=== PATIENT | male | born 1965 | race African-American/Black ===

== ENCOUNTER 2020-10-10 21:09 | Emergency (ER) | payer OTHER ==
[~2020-10-10] VITALS: Ht 172.7 cm; Wt 87.0 kg
[2020-10-10 21:43] VITALS: BP 152/101
[2020-10-10 22:00] LABS: BASOPHIL # 0.1 10^3/uL (0.0-0.1); BASOPHIL % 1.7 % (0.0-0.2); EOSINOPHIL # 0.2 10^3/uL (0.0-0.2); EOSINOPHIL % 3.9 % (0.0-5.0); LYMPHOCYTES % 46.6 % (24.0-44.0); MEAN CORP HGB 31.1 pg (26-34); MONOCYTES # 0.5 10^3/uL (0.3-0.8); MONOCYTES % 11.8 % (5.0-12.0); NEUTROPHIL # 1.5 10^3/uL (1.8-7.7); NEUTROPHILS % 35.8 % (41.0-85.0); PLATELET COUNT 228 10^3/uL (150-400); RED CELL DISTRIBUTION WIDTH 12.7 % (11.5-14.5)
--- NOTE | 2020-10-10 22:18 | DIREP ---
PROCEDURE:CHEST 2 VIEWS COMPARISON:None. INDICATIONS:Pain FINDINGS: LUNGS/PLEURA:Possible developing infiltrate in the left lung base VASCULATURE:Normal. Unremarkable pulmonary vasculature. CARDIAC:Normal. No cardiac silhouette abnormality or cardiomegaly. MEDIASTINUM:Normal. No visible mass or adenopathy. BONES:Normal. No fracture or visible bony lesion. OTHER:Negative. CONCLUSION:Questionable developing infiltrate in the left lung base Dictated by: Lan Burt DO on 10/10/2020 at 10:16 PM
[2020-10-10 22:27] LABS: ALANINE AMINOTRANSFERASE(ML) 31 U/L (12-78); ALKALINE PHOSPHATASE 63 U/L (50-136); ASPARTATE AMINO TRANSFERASE 22 U/L (0-35); CALCIUM 8.8 mg/dL (8.4-10.5); CARBON DIOXIDE 23.7 mmol/L (20.0-32); GLUCOSE 104 mg/dL (70-110)
[2020-10-10 22:47] VITALS: BP 129/87
--- NOTE | 2020-10-10 22:57 | ER.PDOC ---
General Chief Complaint: Chest Pain-Cardiac Nature Stated Complaint: CHEST DISCOMFORT Time seen by MD: 22:54 Source: patient Exam Limitations: no limitations History of Present Illness Initial Comments Chest discomfort for 3 days. No shortness of breath. Severity/Quality: mild, burning Radiation: no radiation Activities at Onset: none Prior CP/Workup: No Prior Chest Pain Nitro Today/Relief: No Nitro Taken Today Aspirin Today: No Aspirin Today Associated Symptoms: denies symptoms Allergies: Coded Allergies: sulfamethoxazole (Verified Allergy, Intermediate, 10/10/20) trimethoprim (Verified Allergy, Intermediate, 10/10/20) Past Medical History Medical History: no pertinent history Surgical History: no surgical history Family History Significant Family History: no pertinent family hx Social History Smoking: non-smoker Alcohol Use: occassionally Drug Use: none Constitutional: no symptoms reported EENTM: no symptoms reported Respiratory: no symptoms reported Cardiovascular: see HPI Gastrointestinal: no symptoms reported All Other Systems: Reviewed and Negative Physical Exam General Appearance: No Apparent Distress, WD/WN Neck: Non-Tender, Full Range of Motion, Supple, Normal Inspection Respiratory: chest non-tender, lungs clear, normal breath sounds, no respiratory distress, no accessory muscle use Cardiovascular: Normal Peripheral Pulses, Regular Rate, Rhythm, No Edema, No Gallop, No JVD, No Murmur Gastrointestinal: Normal Bowel Sounds, No Organomegaly, No Pulsatile Mass, Non Tender, Soft Extremities: Normal Range of Motion, Non-Tender, Normal Inspection, No Pedal Edema, No Calf Tenderness, Normal Capillary Refill 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, No Motor/Sensory Deficits, Alert, Normal Mood/Affect, Oriented x 3 Skin: Normal Color, Warm/Dry Lymphatic: No Adenopathy Results/Orders Results/Orders Orders - DIANELYS GONZALES MD Cbc With Auto Diff (10/10/20 21:33) Comprehensive Metabolic Panel (10/10/20 21:33) Troponin I (10/10/20 21:33) Probnp B-Type Club Car Attendant (10/10/20 21:33) Ekg-Routine (10/10/20 21:33) Xr Chest 2v (10/10/20 21:51) Lipid Panel(Ml) (10/10/20 21:59) Vital Signs Date Time Temp Pulse Resp B/P (MAP) Pulse Ox O2 Delivery O2 Flow Rate FiO2 10/10/20 22:47 86 20 129/87 (101) 97 Room Air 10/10/20 21:43 98.2 82 20 10/10/20 21:43 98.2 82 20 152/101 (118) 82 Room Air 10/10/20 21:43 98.2 82 20 98 Laboratory Tests Test 10/10/20 21:55 White Blood Count 4.1 10^3/uL (4.5-11.0) L Red Blood Count 4.76 10^6/uL (4.50-5.90) Hemoglobin 14.8 g/dL (13.9-16.3) Hematocrit 44.2 % (37.0-53.0) Mean Corpuscular Volume 92.9 fL (78-100) Mean Corpuscular Hemoglobin 31.1 pg (26-34) Mean Corpuscular Hemoglobin Concent 33.5 g/dL (33-36.5) Red Cell Distribution Width 12.7 % (11.5-14.5) Platelet Count 228 10^3/uL (150-400) Mean Platelet Volume 10.7 fL (7.8-11.0) Neutrophils (%) (Auto) 35.8 % (41.0-85.0) L Lymphocytes (%) (Auto) 46.6 % (24.0-44.0) H Monocytes (%) (Auto) 11.8 % (5.0-12.0) Neutrophils # (Auto) 1.5 10^3/uL (1.8-7.7) L Lymphocytes # (Auto) 1.90 10^3/uL1 (1.0-4.8) Monocytes # (Auto) 0.5 10^3/uL (0.3-0.8) Absolute Immature Granulocyte (auto 0.01 10^3 u/L (0-2) Absolute Eosinophils (auto) 0.2 10^3/uL (0.0-0.2) Immature Granulocytes % 0.20 % (0.00-0.50) Eosinophils % 3.9 % (0.0-5.0) Basophils % 1.7 % (0.0-0.2) H Basophils # 0.1 10^3/uL (0.0-0.1) Sodium Level 141 mmol/L (132-145) Potassium Level 4.1 mmol/L (3.6-5.2) Chloride Level 107.0 mmol/L (96-109) Carbon Dioxide Level 23.7 mmol/L (20.0-32) Anion Gap 14.4 Blood Urea Nitrogen 19 mg/dL (7-18) H Creatinine 0.87 mg/dL (0.59-1.40) Estimated GFR () 110.2 (>/=60) Est GFR (CKD-EPI)(Non-Afr [place]) 91.1 (>/=60) BUN/Creatinine Ratio 21.0 Glucose Level 104 mg/dL (70-110) Calcium Level 8.8 mg/dL (8.4-10.5) Total Bilirubin 0.3 mg/dL (0.2-1.0) Aspartate Amino Transferase (AST) 22 U/L (0-35) Alanine Aminotransferase (ALT) 31 U/L (12-78) Alkaline Phosphatase 63 U/L (50-136) Troponin I < 0.02 ng/mL (0.00-0.05) Pro-B-Type Natriuretic Peptide 19 pg/mL (0-125) Total Protein 7.1 g/dL (6.4-8.2) Albumin 3.7 g/dL (3.4-5.0) Globulin 3.4 Albumin/Globulin Ratio 1.088 Triglycerides Level 219 mg/dL (20-200) H Cholesterol Level 272 mg/dL (120-240) H LDL Cholesterol, Calculated 176.2 VLDL Cholesterol, Calculated 43.8 HDL Cholesterol 52 mg/dL (32-96) Cholesterol Ratio (LDL/HDL) 3.3 Cholesterol/HDL Ratio [id number] Progress Progress Patient's chest discomfort resolved while in the ED. Reviewed labs with him and is feeling better to go home. EKG/XRAY/CT/US EKG: NSR, no ST T wave changes EKG Comments: HR 81, normal P axis XRAY: chest (No active disease) ER DEPART Departure Time of Disposition: 22:56 Disposition: 01 HOME / SELF CARE / HOMELESS Impression: Primary Impression: Nonspecific chest pain Condition: Improved Patient Instructions: Chest Pain (Nonspecific), [id number] Referrals: PCP,UNKNOWN (PCP) PRIMARY CARE PROVIDER Duration or Time Spent with Pa: 45 min DIANELYS GONZALES MD Oct 10, 2020 22:57
--- NOTE | 2020-10-11 06:55 | PCM.EKG ---
[facility] Test Date: 2020-10-10 Test Time: 21:29:07 Pat Name: SOFIYA FELTON Department: Patient ID: [id number] Room: Gender: M Motion Study Analyst: TAIWO : 1965 Requested By: DIANELYS GONZALES Order Number: [id number] Reading MD: Measurements Intervals [place] Rate: 81 P: 69 MD: 164 QRS: 71 QRSD: 85 T: 44 QT: 371 QTc: 431 Interpretive Statements Sinus rhythm Left atrial enlargement Probable left ventricular hypertrophy Abnormal T, consider ischemia, lateral leads Compared to ECG 10/10/2020 21:27:45 No significant changes Please click the below link to view image of tracing.
== END 2020-10-10 23:05 | disposition home or self-care (01) ==
LOC: ER 21:09
DX: R07.89 Other chest pain (principal); Z88.1 Allergy status to other antibiotic agents; Z88.2 Allergy status to sulfonamides
CPT/HCPCS: 36415; 71046; 80053; 80061; 83880; 84484; 85025; 93005; 99285

== ENCOUNTER → 2020-10-12 | Outpatient (CLI) | payer OTHER | END | disposition home or self-care (01) | LOC: RT 16:00 | PROVIDERS: ATTEND Internal Medicine Interventional Cardiology | DX: I08.3 Combined rheumatic disorders of mitral, aortic and tricuspid valves (principal); R94.31 Abnormal electrocardiogram [ECG] [EKG] | CPT/HCPCS: 93306 ==

== ENCOUNTER → 2020-10-16 | Outpatient (CLI) | payer OTHER ==
[~2020-10-16] MED LIST: LEXISCAN IV ONE
--- NOTE | 2020-10-17 00:53 | STRESS ---
DATE OF SERVICE: 10/16/2020 DICTATOR NAME: LENAN REEDLEOVirgie CARDIAC STRESS TEST INDICATION: Chest pain. FINDINGS: Baseline EKG shows normal sinus rhythm with deep T-wave inversions in the inferolateral leads. Stress EKG shows sinus tachycardia, unchanged from baseline. At the end of recovery, EKG shows normal sinus rhythm, unchanged from baseline. However, the T-wave inversions in the inferolateral leads appear to have improved from 3-4 mm at baseline to 1.5 mm at the end of recovery. The patient was completely asymptomatic during stress and at recovery. The blood pressure at rest was noted to be 139/85 and jennifer to 142/86 during stress. At the end of recovery, the blood pressure was 143/86. Heart rate at baseline was noted to be 79 beats per minute and jennifer to 111 beats per minute during stress. At the end of recovery, the heart rate was noted to be 93 beats per minute. Blood pressure and heart rate were appropriate for stress. There were no significant symptoms noted during stress. There were no arrhythmias noted during stress. EKG portion of stress test is nondiagnostic due to baseline T-wave inversions in the inferolateral leads. Nuclear images were obtained with a rest dose of 10.63 mCi technetium 99 sestamibi and a stress dose of 33.1 mCi technetium 99 sestamibi. Nuclear images revealed homogeneous tracer distribution across all wall segments in both rest and stress images, with no evidence of myocardial ischemia or infarction. Left ventricular ejection fraction is 71%. EDV is 63 mL, ESV is 18 mL. The left ventricle is normal in size. Gated motion images shows normal wall motion across all segments of the left ventricle. TID is 1.27. There is no evidence of diaphragmatic attenuation artifact. IMPRESSION: 1. Normal myocardial perfusion imaging with no evidence of myocardial ischemia or infarction. 2. Nondiagnostic EKG portion of stress test due to baseline T-wave inversions. 3. Left ventricular ejection fraction of 71%. 4. This is a negative study. Zoey AGUDELO D.O. DR: VAISHNAVI TID: [id number] RECEIPT: [id number]
== END | disposition home or self-care (01) ==
LOC: RT 12:22 → EEVIPCON 12:45
PROVIDERS: ATTEND Internal Medicine Interventional Cardiology
DX: R94.31 Abnormal electrocardiogram [ECG] [EKG] (principal)
CPT/HCPCS: 78452; 93017; A9500; J2785